=== PATIENT | female | born 1960 | race Caucasian/White ===

== ENCOUNTER 2018-02-06 14:51 | Emergency (ER) | payer SELFPAY ==
[2018-02-06] MEDS ORDERED: Lidocaine 1% (PF) 30 ML VIAL ONE (15:20)
[2018-02-06] MEDS ORDERED: Lidocaine 4% Cream 5 GM TUBE w/ Tegaderm ONE (15:20)
[2018-02-06] MEDS ORDERED: HYDROcodone/Acetaminophen 5/325 mg Tablet ONE (15:31)
[2018-02-06] MEDS ORDERED: Bacitracin Zinc 1 Packet ONE (17:01)
[2018-02-06] MEDS ORDERED: Adacel (T-DAP) 0.5 ML VIAL ONE (17:09)
== END 2018-02-06 17:34 | disposition home or self-care (01) ==
LOC: NAV ERS 14:51
DX: S61.215A Laceration without foreign body of left ring finger without damage to nail, initial encounter (principal); K21.9 Gastro-esophageal reflux disease without esophagitis; I10 Essential (primary) hypertension; J45.909 Unspecified asthma, uncomplicated; F41.0 Panic disorder [episodic paroxysmal anxiety]; Z87.891 Personal history of nicotine dependence; Z79.899 Other long term (current) drug therapy; W23.0XXA Caught, crushed, jammed, or pinched between moving objects, initial encounter
CPT/HCPCS: 12001; 90471; 90715; J2001